=== PATIENT | female | born 2000 | race African-American/Black ===

== ENCOUNTER 2023-01-10 14:14 | Emergency (ER) | payer SELFPAY ==
[~2023-01-10] VITALS: Ht 172.7 cm; Wt 68.0 kg
[2023-01-10] MEDS ORDERED: KETOROLAC 30 MG/ML VIAL IVP ONE (14:45)
--- NOTE | 2023-01-10 14:48 | ED Abdominal Pain ---
General Chief Complaint: Abdominal/GI Problems Stated Complaint: BACK PAIN Nursing Triage Note: PT TO RM 9 BY WC WITH COMPLAINT OF ABD PAIN THAT RADIATES TO HER BACK. STATES STARTED YESTERDAY. STATES SHE IS DUE FOR HER PERIOD AT ANY TIME. Source of Information: Patient Exam Limitations: No Limitations History of Present Illness Date Seen by Provider: Jan 10, 2023 Time Seen by Provider: 14:46 Initial Comments Patient is a 22-year-old female who presents to ED with lower abdominal cramping. Cramping started yesterday afternoon. Pain was located bilateral lower abdomen. Pain intensified around 2:00 this morning with a sharp pain in her right flank. That pain has been constant. She states she feels nauseous without any vomiting or diarrhea. She noted some pain with urination and feels like she is peeing more frequently. She states she is scheduled start her menstrual cycle tomorrow. She denies of any vaginal discharge or concern for se xual transmitted infection. Denies history of kidney infections or kidney stones. History of urinary tract infections. Denies taking thing for pain at home. Denies fever, chills, chest pain, cough, shortness of breath. No history of previous abdominal surgeries Allergies and Home Medications Allergies Coded Allergies: Sulfa (Sulfonamide Antibiotics) (Verified Allergy, Unknown, 01/10/23) Patient Home Medication List Home Medication List Reviewed: Yes Cephalexin (Cephalexin) 500 Mg Tablet, 500 MG PO BID Prescribed by: DONTE EAGLE on 01/10/23 1603 Metronidazole (Metronidazole) 500 Mg Tablet, 500 MG PO BID Prescribed by: DONTE EAGLE on 01/10/23 1623 Review of Systems Review of Systems Constitutional: No chills, No diaphoresis, No dizziness, No fever, No malaise EENTM: No Double Vision, No Eye Pain Respiratory: Denies Cough, Denies Orthopnea, Denies Shortness of Air, Denies SOA at Rest Cardiovascular: Denies Chest Pain, Denies Edema, Denies Syncope Gastrointestinal: Denies Abdominal Pain, Denies Diarrhea; Nausea; Denies Vomiting Genitourinary: Denies Burning, Denies Discharge Musculoskeletal: back pain; No joint pain Skin: No change in color, No change in hair/nails All Other Systems Reviewed Negative Unless Noted: Yes Past Lqtdafc-[id number]-Xhnlyd Hx Patient Social History Tobacco Use?: No Use of E-Cig and/or Vaping dev: No Substance use?: No Alcohol Use?: No Pt feels they are or have been: No Physical Exam Vital Signs Vital Signs - First Documented 01/10/23 14:23 Temp 37.2 Pulse 72 Resp 16 B/P (MAP) 107/69 (82) Pulse Ox 99 O2 Delivery Room Air Capillary Refill : Less Than 3 Seconds Height/Weight/BMI Height: '" Weight: lbs. oz. kg; 22.00 BMI Method: General Appearance: WD/WN, no apparent distress HEENT: PERRL/EOMI, normal ENT inspection, TMs normal, pharynx normal Neck: non-tender, full range of motion, supple Respiratory: chest non-tender, lungs clear, normal breath sounds, no respiratory distress, no accessory muscle use Cardiovascular: regular rate, rhythm, no edema, no gallop, no JVD Gastrointestinal: normal bowel sounds, soft, no organomegaly, tenderness (Left and right lower quadrant tenderness on palpation. Normal bowel sounds throughout. 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, no motor/sensory deficits, alert, normal mood/affect, oriented x 3 Skin: normal color, warm/dry Progress/Results/Core Measures Results/Orders Lab Results Laboratory Tests Test 01/10/23 14:30 01/10/23 15:28 Range/Units White Blood Count 8.8 4.3-11.0 10^3/uL Red Blood Count 5.02 3.80-5.11 10^6/uL Hemoglobin 9.6 L 11.5-16.0 g/dL Hematocrit 32 L 35-52 % Mean Corpuscular Volume 64 L 80-99 fL Mean Corpuscular Hemoglobin 19 L 25-34 pg Mean Corpuscular Hemoglobin Concent 30 L 32-36 g/dL Red Cell Distribution Width 21.7 H 10.0-14.5 % Platelet Count 451 H 130-400 10^3/uL Mean Platelet Volume 9.8 9.0-12.2 fL Immature Granulocyte % (Auto) 1 % Neutrophils (%) (Auto) 81 H 42-75 % Lymphocytes (%) (Auto) 11 L 12-44 % Monocytes (%) (Auto) 6 0-12 % Eosinophils (%) (Auto) 1 0-10 % Basophils (%) (Auto) 1 0-10 % Neutrophils # (Auto) 7.2 1.8-7.8 10^3/uL Lymphocytes # (Auto) 0.9 L 1.0-4.0 10^3/uL Monocytes # (Auto) 0.6 0.0-1.0 10^3/uL Eosinophils # (Auto) 0.1 0.0-0.3 10^3/uL Basophils # (Auto) 0.1 0.0-0.1 10^3/uL Immature Granulocyte # (Auto) 0.1 0.0-0.1 10^3/uL Sodium Level 141 135-145 MMOL/L Potassium Level 3.9 3.6-5.0 MMOL/L Chloride Level 110 H 98-107 MMOL/L Carbon Dioxide Level 22 21-32 MMOL/L Anion Gap 9 5-14 MMOL/L Blood Urea Nitrogen 13 7-18 MG/DL Creatinine 0.88 0.60-1.30 MG/DL Estimat Glomerular Filtration Rate 96 BUN/Creatinine Ratio 15 Glucose Level 98 70-105 MG/DL Calcium Level 9.0 8.5-10.1 MG/DL Corrected Calcium 8.9 8.5-10.1 MG/DL Total Bilirubin 1.2 H 0.1-1.0 MG/DL Aspartate Amino Transf (AST/SGOT) 11 5-34 U/L Alanine Aminotransferase (ALT/SGPT) 10 0-55 U/L Alkaline Phosphatase 59 40-136 U/L Total Protein 7.4 6.4-8.2 GM/DL Albumin 4.1 3.2-4.5 GM/DL Lipase 19 8-78 U/L Smear Scan YES Urine Color YELLOW Urine Clarity SL CLOUDY Urine pH 6.0 5-9 Urine Specific [place] 1.010 L 1.016-1.022 Urine Protein TRACE H NEGATIVE Urine Glucose (UA) NEGATIVE NEGATIVE Urine Ketones NEGATIVE NEGATIVE Urine Nitrite NEGATIVE NEGATIVE Urine Bilirubin NEGATIVE NEGATIVE Urine Urobilinogen 0.2 < = 1.0 MG/DL Urine Leukocyte Esterase 3+ H NEGATIVE Urine RBC (Auto) 1+ H NEGATIVE Urine RBC 5-10 H /HPF Urine WBC 50-100 H /HPF Urine Squamous Epithelial Cells 2-5 /HPF Urine Crystals PRESENT H /LPF Urine Amorphous Sediment RARE DANYELLE URATES H /LPF Urine Bacteria LARGE H /HPF Urine Casts NONE /LPF Urine Mucus NEGATIVE /LPF Urine Culture Indicated YES Micro Results Microbiology 01/10/23 Wet Prep - Final, Complete My Orders Orders - PETRA SOLANO Ua Culture If Indicated (01/10/23 14:40) Urine Bedside (01/10/23 14:40) Cbc With Automated Diff (01/10/23 14:45) Comprehensive Metabolic Panel (01/10/23 14:45) Lipase (01/10/23 14:45) Ketorolac Injection (Toradol Injection) (01/10/23 14:45) Wet Prep (01/10/23 14:53) Ns Iv 1000 Ml (Sodium Chloride 0.9%) (01/10/23 15:06) Ns Iv 1000 Ml (Sodium Chloride 0.9%) (01/10/23 15:08) Neisseria Gonorrhea Swab (01/10/23 15:44) Chlamydia Trachomatis Swab (01/10/23 15:44) Urine Culture (01/10/23 15:28) Ceftriaxone 1 Gm Pre-Mix (Rocephin 1 Gm (01/10/23 15:59) Medications Given in ED Current Medications Medications Dose Ordered Sig/Will Route Start Time Stop Time Status Last Admin Dose Admin Ketorolac Tromethamine 30 mg ONCE ONCE IVP 01/10/23 14:45 01/10/23 14:46 DC 01/10/23 15:12 30 MG Vital Signs/I&O 01/10/23 01/10/23 14:23 16:35 Temp 37.2 Pulse 72 76 Resp 16 14 B/P (MAP) 107/69 (82) 101/66 Pulse Ox 99 98 O2 Delivery Room Air Room Air Blood Pressure Mean: 82 Departure Communication (PCP) Patient presents ED with some urinary symptoms, pelvic pain. Concerning for right flank pain. Patient denies of any vaginal discharge or concern for sexual transmitted infection. Currently sexually active. Not concern for . Differential diagnosis of urinary tract infection, PID, appendicitis, nephrolithiasis, pyelonephritis, ovarian cyst. Urinalysis concern for infection. Negative for bedside . Patient with normal white blood count with a hemoglobin of 9.6. Platelets 451. Likely reactive. Low MCV level. concerning for iron deficiency anemia. Not able to compare to previous lab work. Wet mount was positive for clue cells. Suggesting BV. negative for trichomonas or yeast. STD cultures pending. She refused pelvic exam but agreed to self swab. I am not able to rule out other potential source of pain. She acknowledges. Concerning for PID. Patient was given dose of Rocephin 1g here. Will wait for cultures to return for STD before treatment. No sexual i ntercourse until results. No evidence of surgical abdomen. Pain improved. She was given Toradol and a liter of fluid. Slight hypotensive but otherwise stable vital signs. She does not appear toxic or septic. Will discharge with Keflex. Discussed follow-up with hematology with your primary care physician. Discussed my concerns for form of anemia. Return precautions were discussed with patient. Impression Primary Impression: UTI (urinary tract infection) Disposition: 01 HOME, SELF-CARE Condition: Stable Departure-Patient Inst. Decision time for Depature: 16:03 Referrals: NO,LOCAL PHYSICIAN (PCP) Primary Care Physician [facility] Patient Instructions: Urinary Tract Infections in Adults Scripts Metronidazole (Metronidazole) 500 Mg Tablet 500 MG PO BID for 7 Days, #14 TAB Prov: PETRA SOLANO 01/10/23 Cephalexin (Cephalexin) 500 Mg Tablet 500 MG PO BID for 7 Days, #14 TAB Prov: PETRA SOLANO 01/10/23 PETRA SOLANO Jan 10, 2023 14:48
[2023-01-10 15:03] LABS: BASOPHILS # (AUTO) 0.1 10^3/uL (0.0-0.1); BASOPHILS % (AUTO) 1 % (0-10); EOSINOPHILS # (AUTO) 0.1 10^3/uL (0.0-0.3); EOSINOPHILS % (AUTO) 1 % (0-10); HEMATOCRIT 32 % (35-52); HEMOGLOBIN 9.6 g/dL (11.5-16.0); LYMPHOCYTES # (AUTO) 0.9 10^3/uL (1.0-4.0); LYMPHOCYTES % (AUTO) 11 % (12-44); MEAN CORPUSCULAR HEMOGLOBIN 19 pg (25-34); MEAN CORPUSCULAR HGB CONC 30 g/dL (32-36); MEAN CORPUSCULAR VOLUME 64 fL (80-99); MEAN PLATELET VOLUME 9.8 fL (9.0-12.2); MONOCYTES # (AUTO) 0.6 10^3/uL (0.0-1.0); MONOCYTES % (AUTO) 6 % (0-12); NEUTROPHILS # (AUTO) 7.2 10^3/uL (1.8-7.8); NEUTROPHILS % (AUTO) 81 % (42-75); PLATELET COUNT 451 10^3/uL (130-400); WHITE BLOOD COUNT 8.8 10^3/uL (4.3-11.0)
[2023-01-10] MEDS ORDERED: NS IV 1000 ML 1,000 ML IV STA (15:06)
[2023-01-10] MEDS ORDERED: NS IV 1000 ML 1,000 ML ONE (15:08)
[2023-01-10 15:11] LABS: SMEAR SCAN COMMENT YES
[2023-01-10 15:16] LABS: ALBUMIN 4.1 GM/DL (3.2-4.5)
[2023-01-10 15:17] LABS: POTASSIUM 3.9 MMOL/L (3.6-5.0)
[2023-01-10 15:19] LABS: TOTAL PROTEIN 7.4 GM/DL (6.4-8.2)
[2023-01-10 15:21] LABS: BILIRUBIN,TOTAL 1.2 MG/DL (0.1-1.0)
[2023-01-10 15:23] LABS: CREATININE SERUM 0.88 MG/DL (0.60-1.30)
[2023-01-10 15:47] LABS: BILIRUBIN,URINE NEGATIVE (NEGATIVE); CLARITY,URINE SL CLOUDY; COLOR,URINE YELLOW; GLUCOSE, URINE (UA) NEGATIVE (NEGATIVE); KETONES,URINE NEGATIVE (NEGATIVE); LEUKOCYTE ESTERASE ,URINE 3+ (NEGATIVE); NITRITE,URINE NEGATIVE (NEGATIVE); PROTEIN,URINE TRACE (NEGATIVE)
[2023-01-10 15:57] LABS: AMORPHOUS SEDIMENT,UR RARE AMOR URATES /LPF; BACTERIA,URINE LARGE /HPF; WBC,URINE 50-100 /HPF
[2023-01-10] MEDS ORDERED: cefTRIAXone PRE-MIX 50 ML IV STA (15:59)
[2023-01-10] MEDS ORDERED: CEPH500T PO (16:03)
[2023-01-10] MEDS ORDERED: METR-145 PO (16:23)
[2023-01-10 16:35] VITALS: BP 101/66
== END 2023-01-10 16:35 | disposition home or self-care (01) ==
LOC: ER 14:16
DX: N39.0 Urinary tract infection, site not specified (principal); Z88.2 Allergy status to sulfonamides
CPT/HCPCS: 36415; 80053; 81000; 83690; 84703; 85025; 87077; 87088; 87186; 87210; 87491; 87591